=== PATIENT | female | born 1965 | race Caucasian/White ===

== ENCOUNTER 2024-09-26 05:27 | Day surgery (SDC) | payer OTHER ==
[2024-09-26 13:10] VITALS: BMI 32.1
[2024-09-26] MEDS ORDERED: MIDAZOLAM HCL 2 MG/2 ML SINGLE DOSE VIAL ONE (14:30)
[2024-09-26] MEDS ORDERED: ONDANSETRON 4 MG/2 ML VIAL ONE ×2 (14:30→16:47)
[2024-09-26 15:15] VITALS: RESP 20
[2024-09-26] MEDS: ONDANSETRON 4 MG/2 ML VIAL IVPUSH ONE (16:50)
[2024-09-26] MEDS ORDERED: ONDANSETRON 4 MG/2 ML VIAL IVPUSH PRN (17:04)
[2024-09-26] MEDS ORDERED: PROMETHAZINE HCL 25 MG/1 ML VIAL ONE (18:35)
[2024-09-26] MEDS: PROMETHAZINE HCL 25 MG/1 ML VIAL IVPB ONE (18:45)
[2024-09-26 19:40] VITALS: BP 110/70; PULSE 70; TEMP 97.8
== END 2024-09-26 19:40 | disposition home or self-care (01) ==
LOC: JASU-SURG 05:27
PROVIDERS: ATTEND Urology
PROC: 0TF3XZZ Fragmentation in Right Kidney Pelvis, External Approach (ICD-10-PCS; principal; 2024-09-26 15:30)
DX: N20.0 Calculus of kidney (principal)
CPT/HCPCS: 82962